=== PATIENT | male | born 1975 | race Caucasian/White ===

== ENCOUNTER 2017-01-29 18:18 | Emergency (ER) | payer OTHER ==
[~2017-01-29] VITALS: Ht 182.9 cm; Wt 100.0 kg
[~2017-01-29 18:18] MED LIST: CLIN-78 PO; GLIM2TAB2 PO; INSU100V7 SUBQ; LISI2.5T PO; METF500T4 PO
[2017-01-29 18:20] VITALS: BP 174/83; PULSE 92; RESP 20; O2SAT 100
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
[2017-01-29] MEDS ORDERED: IBUP800T28 PO (19:17)
[2017-01-29 19:50] VITALS: BP 127/87; PULSE 87; RESP 16; O2SAT 97
== END 2017-01-29 19:51 | disposition home or self-care (01) ==
LOC: SED 18:18
DX: S22.070A Wedge compression fracture of T9-T10 vertebra, initial encounter for closed fracture (principal); W18.2XXA Fall in (into) shower or empty bathtub, initial encounter; Y92.002 Bathroom of unspecified non-institutional (private) residence as the place of occurrence of the external cause; Y93.E1 Activity, personal bathing and showering; Y99.8 Other external cause status; E11.9 Type 2 diabetes mellitus without complications; I10 Essential (primary) hypertension; Z87.828 Personal history of other (healed) physical injury and trauma; Z79.4 Long term (current) use of insulin; Z79.84 Long term (current) use of oral hypoglycemic drugs